=== PATIENT | female | born 1930 | race Caucasian/White ===

== ENCOUNTER → 2017-04-06 | Outpatient (CLI) | payer MEDICARE, OTHER ==
--- NOTE | 2017-04-09 08:02 | BD ---
EXAMINATION TYPE: MG DEXA axial skeleton. DATE OF EXAM: 04/06/2017 COMPARISON: 03.29.2015 CLINICAL HISTORY: 86-year-old female ICD10 CODE: Z78.0 POST MENOPAUSAL W/O HRT Height: 64.5 Weight: 159 FRAX RISK QUESTIONS: Alcohol (3 or more units per day): RED WINE DAILY, NOT 3 UNITS Family History (Parent hip fracture): NO Glucocorticoids (More than 3mos): NO (Ex: prednisone, prednisolone, methylprednisolone, dexamethasone, and hydrocortisone). History of Fracture in Adulthood: NO Secondary Osteoporosis: NO 1. Type 1 Diabetes: NO 2. Hyperthyroidism: NO 3. Menopause before 45: NO 4. Malnutrition: NO 5. Chronic liver disease: NO Rheumatoid Arthritis: NO Current Tobacco Use: NO...QUIT 30 YRS AGO RISK FACTORS HISTORY OF: Family History of Osteoporosis: YES, HER MOTHER..NO HIP FX Active: YES PRETTY ACTIVE Diet low in dairy products/other sources of calcium: NO Postmenopausal woman: YES AT AGE 56 YRS OLD Lost more than 2 inches in height since high school: YES Hyperparathyroidism: NO Adrenal Insufficiency: NO MEDICATIONS: Osteoporosis Medications: LAST TAKEN 2 YRS AGO Which medication: PROLIA How Lon YRS Additional Medications: NASAL SPRAY FOR SINUS TROUBLE, CALTRATE, REFLUX MEDS, CHOLESTEROL MEDS....STO PPED 1 YR AGO Additional History: OSTEOPENIA, REFLUX, SINUS CONGESTION EXAM MEASUREMENTS: Bone mineral densitometry was performed using the LVL6 System. Bone mineral density as measured about the Lumbar spine is: ----- L1-L4(G/cm2): 1.059 T Score Values are as follows: ----- L1: -2.0 ----- L2: -2.5 ----- L3: -0.6 ----- L4: 0.7 ----- L1-L4: -1.0 Bone mineral density has: Increased 0.6% since study of: 03.29.2015 Bone mineral density about the R hip (g/cm2): 0.806 Bone mineral density about the L hip (g/cm2): 0.901 T Score values are as follows: -----R Neck: -1.4 -----L Neck: -0.7 -----R Total: -1.6 -----L Total: -0.9 Bone mineral density has: Decreased -0.5% since study of: 03.29.2015 FRAX%'S: THERE IS A 13.0% CHANCE OF A MAJOR OSTEOPOROTIC FX AND A 3.4% OF A HIP FX.....PROBABILITY OF FX IN 10 YRS TIME IMPRESSION: Osteopenia (T Score between -2.5 and -1 as noted by T score values There is slightly increased risk of fracture and the patient may be considered for treatment. Re-Screen 2-5 years. NOTE: T-SCORE=SD OF THE YOUNG ADULT MEAN.
--- NOTE | 2017-04-09 11:14 | MM ---
Reason for exam: screening (asymptomatic). Last mammogram was performed 4 years and 2 months ago. History: Patient is postmenopausal. Family history of breast cancer in paternal cousin. Taking estrogen for 14 years beginning at age 64. Physical Findings: A clinical breast exam by your physician is recommended on an annual basis and results should be correlated with mammographic findings. MG Screening Mammo w CAD Bilateral CC and MLO view(s) were taken. Prior study comparison: February 04, 2013, bilateral digital screening mammo w/CAD. January 19, 2011, bilateral digital screening mammo w/CAD. The breast tissue is extremely dense which could obscure a lesion on mammography. Stable benign calcifications. There is no discrete abnormality. No significant changes when compared with prior studies. ASSESSMENT: Benign, BI-RAD 2 RECOMMENDATION: Routine screening mammogram of both breasts in 1 year.
== END | disposition home or self-care (01) ==
LOC: RADMAMWWP 10:09
PROVIDERS: ATTEND Family Medicine
DX: Z12.31 Encounter for screening mammogram for malignant neoplasm of breast (principal); M85.80 Other specified disorders of bone density and structure, unspecified site; Z78.0 Asymptomatic menopausal state
CPT/HCPCS: 77080; G0202

== ENCOUNTER → 2017-05-24 | Outpatient (CLI) | payer MEDICARE, OTHER ==
[~2017-05-24] MED LIST: DENOSUMAB 60 MG/ML 1 ML SYRINGE SQ ONE
[2017-05-24 14:07] VITALS: BP 125/62; PULSE 67; RESP 16; TEMP 98
== END | disposition home or self-care (01) ==
LOC: PROCWHC3 13:35
PROVIDERS: ATTEND Family Medicine
DX: M81.0 Age-related osteoporosis without current pathological fracture (principal)
CPT/HCPCS: 96372

== ENCOUNTER → 2018-03-05 | Outpatient (CLI) | payer MEDICARE, OTHER ==
[2018-03-05 14:52] VITALS: BP 101/61; PULSE 60; RESP 14; TEMP 98.2
== END | disposition home or self-care (01) ==
LOC: PROCWHC3 14:28
PROVIDERS: ATTEND Family Medicine
DX: M81.0 Age-related osteoporosis without current pathological fracture (principal)
CPT/HCPCS: 96372; J0897

== ENCOUNTER → 2018-09-04 | Outpatient (CLI) | payer MEDICARE, OTHER ==
[2018-09-04 10:38] VITALS: BP 135/77; PULSE 58; RESP 16; TEMP 96.7
== END ==
LOC: PROCWHC3 10:17
PROVIDERS: ATTEND Midwife
DX: M81.0 Age-related osteoporosis without current pathological fracture (principal)
CPT/HCPCS: 96372; J0897

== ENCOUNTER → 2018-09-18 | Outpatient (CLI) | payer MEDICARE, OTHER ==
--- NOTE | 2018-09-18 18:04 | CT ---
EXAMINATION TYPE: CT brain marielle wo con DATE OF EXAM: 09/18/2018 COMPARISON: None HISTORY: Neck pain and headache CT DLP: 1449 mGycm, Automated exposure control for dose reduction was used. CONTRAST: None CT of the brain is performed utilizing 3 mm thick sections through the posterior fossa and 3 mm thick sections through the remaining calvarium. Study is performed within 24 hours of arrival to the hospital. No abnormal hyperdensity is present to suggest an acute intracranial hemorrhage. No mass lesion is evident. No acute infarcts are evident. There are some scattered periventricular white matter hypodense areas , likely on the basis of chronic white matter ischemic change. Ventricles and sulci are prominent for the patient age. Paranasal sinuses and mastoid air cells within the [id number] are clear. IMPRESSIONS: 1. Atrophy with periventricular white matter ischemic changes. CT cervical spine. COMPARISON: None CT of the cervical spine is performed in the axial plane at 2 mm thick sections. Reconstructed image s in the coronal, and sagittal plane are reviewed on the computer. No acute fractures are evident. Vertebral body alignment is normal. There is diffuse narrowing of the disc heights. A very minimal grade 1 spondylolisthesis of C4 anteri janina on C5 is present. Facet degenerative changes are present C4-5 on the left. Vertebral body heights are preserved. No spinal canal stenosis is evident. No neural foraminal stenosis is evident. IMPRESSIONS: 1. Facet degenerative changes greatest at C5 for 5 on the left. 2. Grade 1 spondylolisthesis of C4 anteriorly on C5. 3. Diffuse degenerative disc changes. 4. No acute fractures evident
== END | disposition home or self-care (01) ==
LOC: RADCTMAIN 07:51
PROVIDERS: ATTEND Family Medicine
DX: M50.30 Other cervical disc degeneration, unspecified cervical region (principal); M47.812 Spondylosis without myelopathy or radiculopathy, cervical region; M43.12 Spondylolisthesis, cervical region
CPT/HCPCS: 70450; 72125

== ENCOUNTER → 2019-04-02 | Outpatient (CLI) | payer MEDICARE, OTHER ==
[2019-04-02 10:55] VITALS: BP 132/75; PULSE 54; RESP 16; TEMP 97.2
== END | disposition home or self-care (01) ==
LOC: PROCWHC3 10:28
PROVIDERS: ATTEND Family Medicine
DX: M81.0 Age-related osteoporosis without current pathological fracture (principal)
CPT/HCPCS: 96372; J0897

== ENCOUNTER → 2019-04-14 | Outpatient (CLI) | payer MEDICARE, OTHER ==
--- NOTE | 2019-04-15 04:16 | BD ---
EXAMINATION TYPE: Axial Bone Density DATE OF EXAM: 04/14/2019 COMPARISON: 04/06/2017 CLINICAL HISTORY: 88-year-old female postmenopausal screening Height: 65.2 IN Weight: 156 LBS RISK FACTORS HISTORY OF: Active: YES Diet low in dairy products/other sources of calcium: YES Postmenopausal woman: AGE 56 Take estrogen and/or progesterone medications: NOT NOW TOOK FOR 14 YEARS MEDICATIONS: Osteoporosis Medications: YES Which medication: Prolia How Lon-4 YEARS Additional Medications: PROLIA, VIT D, CALTRATE,ASPIRIN, METROPROLOL, EXAM MEASUREMENTS: Bone mineral densitometry was performed using the [employer] System. Bone mineral density as measured about the Lumbar spine is: ----- L1-L4(G/cm2): 1.096 T Score Values are as follows: ----- L2: -2.1 ----- L3: -0.5 ----- L4: 1.5 ----- L1-L4: -0.7 Bone mineral density has: Increased 4.9% since study of: 04/06/2017 Bone mineral density about the R hip (g/cm2): 0.795 Bone mineral density about the L hip (g/cm2): 0.896 T Score values are as follows: -----R Neck: -1.8 -----L Neck: -1.0 -----R Total: -1.3 -----L Total: -0.8 Bone mineral density has: Increased 2.5% since study of: 04/06/2017 IMPRESSION: Osteopenia (T Score between -2.5 and -1). There is slightly increased risk of fracture and the patient may be considered for treatment. Re-Screen 2-5 years. NOTE: T-SCORE=SD OF THE YOUNG ADULT MEAN.
--- NOTE | 2019-04-15 09:45 | MM ---
Reason for exam: screening (asymptomatic). Last mammogram was performed 2 years ago. History: Patient is postmenopausal. Family history of breast cancer in paternal cousin. Taking estrogen for 14 years beginning at age 64. Physical Findings: A clinical breast exam by your physician is recommended on an annual basis and results should be correlated with mammographic findings. MG 3D Screening Mammo W/Cad Bilateral CC and MLO view(s) were taken. Prior study comparison: April 06, 2017, bilateral MG screening mammo w CAD. February 04, 2013, bilateral digital screening mammo w/CAD. The breast tissue is extremely dense which could obscure a lesion on mammography. Benign appearing bilateral calcifications. No suspicious abnormality. No significant changes when compared with prior studies. ASSESSMENT: Benign, BI-RAD 2 RECOMMENDATION: Routine screening mammogram of both breasts in 1 year.
== END | disposition home or self-care (01) ==
LOC: RADMAMWWP 09:39
PROVIDERS: ATTEND Family Medicine
DX: Z12.31 Encounter for screening mammogram for malignant neoplasm of breast (principal); M85.80 Other specified disorders of bone density and structure, unspecified site; Z78.0 Asymptomatic menopausal state
CPT/HCPCS: 77063; 77067; 77080

== ENCOUNTER 2019-12-15 06:35 | Day surgery (SDC) | payer MEDICARE, OTHER ==
[2019-12-12 09:40] VITALS: BMI 23.9
[~2019-12-15 06:35] MED LIST changes: +ACETAMINOPHEN TAB 500 MG TAB PO ONE; -DENOSUMAB 60 MG/ML 1 ML SYRINGE SQ ONE; +DEXAMETHASONE SOD PHOSPHATE 10 MG/ML 1 ML VIAL IV ONE; +HEPARIN SODIUM,PORCINE 5,000 UNIT/ML 1 ML VIAL SQ ONE; +HYDROmorphone 0.5 MG/0.5 ML SYRINGE IVP PRN; +LACTATED RINGERS 1,000 ML IV SCH; +LIDOCAINE 1% (10MG/ML) FOR IV START INTRADERMA PRN; +ONDANSETRON 4 MG/2 ML VIAL IVP ONE; +Pre Op ABX Message 1 EACH MISC MISCELLANE ONE
[2019-12-15] MEDS ORDERED: ACETAMINOPHEN TAB 500 MG TAB ONE (06:50)
[2019-12-15] MEDS ORDERED: ONDANSETRON 4 MG/2 ML VIAL ONE (06:51)
[2019-12-15] MEDS ORDERED: HEPARIN SODIUM,PORCINE 5,000 UNIT/ML 1 ML VIAL ONE (06:56)
[2019-12-15 07:09] VITALS: TEMP 97.2
[2019-12-15] MEDS ORDERED: MIDAZOLAM 2 MG/2 ML VIAL ONE (07:34)
[2019-12-15] MEDS ORDERED: PROPOFOL 10 MG/ML 20 ML VIAL IV ONE (07:34)
[2019-12-15] MEDS ORDERED: fentaNYL (PF) 50 MCG/ML 2 ML AMP ONE (07:34)
--- NOTE | 2019-12-15 07:42 | P.GSHP ---
History of Present Illness H&P Date: 12/15/19 Chief Complaint: Squamous cell carcinoma left lower leg This 89-year-old female who underwent previous biopsy of a skin lesion left lower leg. Patient's found have scope was carcinoma. She presents today for wide local excision. Past Medical History Past Medical History: Musculoskeletal Disorder Additional Past Medical History / Comment(s): Rapid heartbeat. Osteoporosis. Back pain. History of Any Multi-Drug Resistant Organisms: None Reported Past Surgical History: Appendectomy, Hysterectomy Additional Past Surgical History / Comment(s): Bilateral Bunionectomy, Varicose Vein Stripping, Bilateral Cataract Surgery. Past Anesthesia/Blood Transfusion Reactions: No Reported Reaction Past Psychological History: No Psychological Hx Reported Smoking Status: Former smoker Past Alcohol Use History: Occasional Additional Past Alcohol Use History / Comment(s): Smoked in teens and 20's. Past Drug Use History: None Reported - Past Family History Father Family Medical History: Cancer Additional Family Medical History / Comment(s): Liver Cancer. Medications and Allergies Home Medications Medication Instructions Recorded Confirmed Type Aspirin 81 mg PO Q48H 02/19/14 12/12/19 History Calcium Carbonate/Vitamin D3 1 each PO DAILY 02/19/14 12/12/19 History [Caltrate 600 + D Tablet] Cholecalciferol (Vitamin D3) 10,000 unit PO DAILY 02/19/14 12/12/19 History [Vitamin D] Denosumab [Prolia] 60 mg SQ DIRECTED 05/12/14 12/12/19 History Metoprolol 25 mg PO QAM 12/12/19 12/12/19 History [place]-3 Fatty Acids/Fish Oil [Fish 1 each PO DAILY 12/12/19 12/12/19 History Oil 1,000 mg Softgel] Allergies Allergy/AdvReac Type Severity Reaction Status Date / Time Penicillins Allergy Swelling Verified 12/15/19 07:09 Surgical - Exam Vital Signs Temp Pulse Resp BP Pulse Ox 97.2 F L 60 14 141/68 98 12/15/19 07:07 12/15/19 07:07 12/15/19 07:07 12/15/19 07:07 12/15/19 07:07 - General well developed, well nourished, no distress - Eyes PERRL - ENT normal pinna - Neck no masses - Respiratory normal expansion - Cardiovascular Rhythm: regular - Abdomen Abdomen: soft, non tender - Integumentary 1 cm serosal carcinoma which has been biopsy of left lower leg pretibial area Assessment and Plan Plan: Squamous cell carcinoma left lower leg. Patient will undergo wide local excision today.
[2019-12-15] MEDS ORDERED: SODIUM CHLORIDE 0.9% 50 ML with CLINDAMYCIN 600 MG IV ONE ×4 (07:48)
[2019-12-15] MEDS ORDERED: BUPIVACAIN-EPI 0.25%-1:200,000 30 ML VIAL SQ ONE ×2 (07:48)
--- NOTE | 2019-12-15 08:05 | P.OP ---
Date of Procedure: 12/15/19 Preoperative Diagnosis: Left lower extremity squamous cell carcinoma Postoperative Diagnosis: Left lower extremity squamous cell carcinoma Procedure(s) Performed: Wide local excision of squamous cell carcinoma left lower extremity Anesthesia: MAC Surgeon: Mitch Sauer Estimated Blood Loss (ml): 3 Pathology: other (Skin lesion) Condition: stable Disposition: PACU Description of Procedure: The patient was placed on the operative table in the supine position. She received IV sedation. Her left lower extremity was prepped and draped usual sterile fashion. The patient a previous a biopsied skin lesion. Elliptical skin incision was made around the lesion. The excised lesion measured approximately 3 x 2 cm. The sutures placed in the superior portion of the lesion to fausto it. The skin was then closed interrupted 3-0 Vicryl and 3-0 nylon suture. Sterile dressing applied. Patient top she will was sent to recovery in stable condition.
[2019-12-15 08:07] VITALS: PULSE 62; RESP 16
[2019-12-15 08:28] VITALS: BP 106/63
== END 2019-12-15 08:51 | disposition home or self-care (01) ==
LOC: OR 06:35
PROVIDERS: ATTEND Surgery
DX: C44.729 Squamous cell carcinoma of skin of left lower limb, including hip (principal); M81.0 Age-related osteoporosis without current pathological fracture; Z88.0 Allergy status to penicillin; Z79.82 Long term (current) use of aspirin; Z79.899 Other long term (current) drug therapy; Z90.49 Acquired absence of other specified parts of digestive tract; Z98.41 Cataract extraction status, right eye; Z98.42 Cataract extraction status, left eye; Z90.710 Acquired absence of both cervix and uterus; Z98.890 Other specified postprocedural states; Z87.891 Personal history of nicotine dependence; Z80.0 Family history of malignant neoplasm of digestive organs
CPT/HCPCS: 88305; 11603; J2250; J1644; J1100; J2405; J3010; J2704

== ENCOUNTER → 2020-02-17 | Outpatient (CLI) | payer MEDICARE, OTHER ==
[~2020-02-17] MED LIST changes: -ACETAMINOPHEN TAB 500 MG TAB PO ONE; +DENOSUMAB 60 MG/ML 1 ML SYRINGE SQ NR; -DEXAMETHASONE SOD PHOSPHATE 10 MG/ML 1 ML VIAL IV ONE; -HEPARIN SODIUM,PORCINE 5,000 UNIT/ML 1 ML VIAL SQ ONE; -HYDROmorphone 0.5 MG/0.5 ML SYRINGE IVP PRN; -LACTATED RINGERS 1,000 ML IV SCH; -LIDOCAINE 1% (10MG/ML) FOR IV START INTRADERMA PRN; -ONDANSETRON 4 MG/2 ML VIAL IVP ONE; -Pre Op ABX Message 1 EACH MISC MISCELLANE ONE
[2020-02-17 14:08] VITALS: BP 108/68; PULSE 73; RESP 16; TEMP 97.5
== END | disposition home or self-care (01) ==
LOC: PROCWHC3 13:54
PROVIDERS: ATTEND Nurse Practitioner Family
DX: M81.0 Age-related osteoporosis without current pathological fracture (principal)
CPT/HCPCS: 96372; J0897

== ENCOUNTER → 2020-11-02 | Outpatient (CLI) | payer MEDICARE, OTHER ==
[2020-11-02 10:47] VITALS: BP 96/60; PULSE 96; RESP 18; TEMP 97.7
== END ==
LOC: PROCWHC3 10:34
PROVIDERS: ATTEND Family Medicine
DX: M81.0 Age-related osteoporosis without current pathological fracture (principal); Z88.0 Allergy status to penicillin
CPT/HCPCS: 96372; J0897

== ENCOUNTER → 2021-05-09 | Outpatient (CLI) | payer MEDICARE, OTHER ==
[2021-05-09 10:43] VITALS: BP 122/67; PULSE 64; RESP 16; TEMP 97.9
== END ==
LOC: PROCWHC3 10:15
PROVIDERS: ATTEND Family Medicine
DX: M81.0 Age-related osteoporosis without current pathological fracture (principal); Z88.0 Allergy status to penicillin
CPT/HCPCS: 96372; J0897

== ENCOUNTER 2021-06-01 10:47 | Emergency (ER) | payer MEDICARE, OTHER ==
[2021-06-01 10:55] VITALS: RESP 20
--- NOTE | 2021-06-01 11:23 | ED ---
Fall HPI - General Chief Complaint: Fall Stated Complaint: Fall Time Seen by Provider: 06/01/21 10:56 Source: patient, EMS Mode of arrival: EMS Limitations: no limitations - History of Present Illness Initial Comments: This is a pleasant 89-year-old female who presents to the ER via EMS after having a mechanical fall. Patient states she was walking, turned, and tripped over a curb. Patient fell face forward and struck her nose and forehead area on cement. Patient recalls the entire event. There is no loss of consciousness. She denies any vision or hearing changes. No neck pain. No significant headache. No chest pain or shortness of breath. No abdominal pain. Patient has no preceding symptomology. No symptoms of syncope. Nuys any nausea or vomiting. She denies any focal weakness. Patient complaining of pain to the nasal area. Pain is exacerbated by palpation. She did have a nosebleed which has stopped. Seemed to be mostly from the right side. Patient also complaining of some pain about the right elbow has full range of motion. Sustained an abrasion to the right knee and right lower leg area with no significant pain. Last tetanus is unknown. Patient is not anticoagulated. 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 Witnessed: yes, by bystander Place Fall Occurred: street Loss of Consciousness: none Prolonged Down Time?: no Symptoms Prior to Fall: none Location: head, face Location - Extremities: Right: Elbow, Forearm, Knee, Leg Severity: mild Severity scale (1-10): 3 Quality: dull Context: tripped/slipped Associated Symptoms: denies - Related Data Home Medications Medication Instructions Recorded Confirmed Aspirin 81 mg PO DAILY 02/19/14 06/01/21 Calcium Carbonate/Vitamin D3 1 tab PO DAILY 02/19/14 06/01/21 [Caltrate 600 + D Tablet] Denosumab [Prolia] 60 mg SQ Q365D 05/12/14 06/01/21 Atorvastatin [Lipitor] 10 mg PO HS 11/02/20 06/01/21 Cholecalciferol [Vitamin D3 (125 125 mcg PO DAILY 06/01/21 06/01/21 Mcg = 5000 Iu)] Ipratropium [place] 0.06%Nasal 2 spr EA NOSTRIL TID 06/01/21 06/01/21 [Atrovent Nasal 0.06%] Metoprolol Tartrate [Lopressor] 12.5 mg PO DAILY 06/01/21 06/01/21 Allergies Allergy/AdvReac Type Severity Reaction Status Date / Time Penicillins Allergy Swelling Verified 06/01/21 11:55 Review of Systems ROS Statement: Those systems with pertinent positive or pertinent negative responses have been documented in the HPI. ROS Other: All systems not noted in ROS Statement are negative. Constitutional: Reports: as per HPI Eyes: Reports: as per HPI ENT: Reports: as per HPI Respiratory: Denies: cough, dyspnea, wheezes Cardiovascular: Denies: chest pain, palpitations, dyspnea on exertion, orthopnea Endocrine: Denies: fatigue, heat or cold intolerance Gastrointestinal: Denies: abdominal pain, nausea, vomiting Genitourinary: Denies: urgency, dysuria Musculoskeletal: Denies: back pain, joint swelling Skin: Denies: rash, change in color Neurological: Reports: as per HPI. Denies: headache, weakness, confusion, abnormal gait, vertigo Psychiatric: Denies: anxiety, depression Hematological/Lymphatic: Reports: as per HPI. Denies: easy bleeding, easy bruising Past Medical History Past Medical History: Musculoskeletal Disorder Additional Past Medical History / Comment(s): Rapid heartbeat. Osteoporosis. Back pain. History of Any Multi-Drug Resistant Organisms: None Reported Past Surgical History: Appendectomy, Hysterectomy Additional Past Surgical History / Comment(s): Bilateral Bunionectomy, Varicose Vein Stripping, Bilateral Cataract Surgery. Past Anesthesia/Blood Transfusion Reactions: No Reported Reaction Past Psychological History: No Psychological Hx Reported Smoking Status: Former smoker Past Alcohol Use History: Occasional Past Drug Use History: None Reported - Past Family History Father Family Medical History: Cancer Additional Family Medical History / Comment(s): Liver Cancer. General Exam - General Exam Comments Initial Comments: Cranial nerves II through XII grossly intact. Patient appears to have no focal neurologic deficit. Appears to have minor trauma to the nasal area as well as an abrasion to the right knee and right lower leg. No other significant abnormalities noted. Intraocular medical history. Alert and oriented 4. Limitations: no limitations General appearance: alert, in no apparent distress Head exam: Present: atraumatic, normocephalic, normal inspection Eye exam: Present: normal appearance, PERRL, EOMI. Absent: scleral icterus, conjunctival injection, periorbital swelling ENT exam: Present: normal exam, mucous membranes moist, other (Patient has abrasion to the bridge of her nose with tenderness associated to the area. Evidence of recent bleeding to the right naris. No evidence of septal hematoma. Airways patent. Facial examination is normal otherwise. No other significant abnormalities.) Expanded Ear exam: Present: normal external inspection. Absent: auricular hematoma, auricular trauma Mouth exam: Present: normal external inspection, tongue normal. Absent: drooling, trismus, muffled voice Teeth exam: Present: normal inspection. Absent: dental caries, fractured tooth #, dental tenderness # Throat exam: normal inspection Neck exam: Present: normal inspection, other (Patient in a cervical collar). Absent: tenderness, meningismus, lymphadenopathy Respiratory exam: Present: normal lung sounds bilaterally. Absent: respiratory distress, wheezes, rales, rhonchi, stridor Cardiovascular Exam: Present: regular rate, normal rhythm, normal heart sounds. Absent: systolic murmur, diastolic murmur, rubs, gallop, clicks GI/Abdominal exam: Present: soft, normal bowel sounds. Absent: distended, tenderness, guarding, rebound, rigid Extremities exam: Present: normal inspection, full ROM, normal capillary refill. Absent: tenderness, pedal edema, joint swelling, calf tenderness Back exam: Present: normal inspection Neurological exam: Present: alert, oriented X3, CN II-XII intact, normal gait, other ([place] Coma Scale is 15.). Absent: altered, abnormal gait, motor sensory deficit, reflexes normal Expanded Patient oriented to: Present: person, place, time Speech: Present: fluid speech Cerebellar function: Finger to Nose: Normal, Heel to [place]: Normal Motor strength exam: RUE: 5, LUE: 5, RLE: 5, LLE: 5 Psychiatric exam: Present: normal affect, normal mood Skin exam: Present: warm, dry, intact, normal color. Absent: rash Course Vital Signs 06/01/21 10:48 Temperature 98.2 F Pulse Rate 62 Respiratory 20 Rate Blood Pressure 143/79 O2 Sat by Pulse 97 Oximetry Medical Decision Making - Medical Decision Making Emergency Medicine: Utilization of CT for Minor Blunt Head Trauma (Adult) [X] Patient is 18 or older, presenting with minor blunt head trauma. Head CT (including cosigned orders) was ordered by an emergency landcare officer for trauma because (select one or more): [SATISFIES MIPS PERFORMANCE] Reasons: [X] Patient is 65 or older Disposition Clinical Impression: Fall, Nasal bone fracture, Closed head injury, Sprain of elbow, right Disposition: DC/TRNS W/I HOSP TO SNF SWING Condition: Good Instructions (If sedation given, give patient instructions): Fall Prevention for Older Adults (ED), Head Injury (ED), Elbow Sprain (ED), Nasal Fracture (ED) Additional Instructions: Follow-up with your regular physician as directed. Return to the ER immediately if any symptoms worsen, new symptoms arise, or any other problems develop. Follow-up with orthopedics as directed. Wear the sling as tolerated. Take [id number] Tylenol 500 mg every 4-6 hours as needed for pain control. Ensure that some disease with you at all times for the next 24 hours. Apply ice to the affected areas for 10-15 minutes at a time 45 times daily. Call for a follow-up appointment with the orthopedic physician as well as the ENT physician. Review the head injury instructions. Is patient prescribed a controlled substance at d/c from ED?: No Referrals: Edis Alvarado MD [Primary Care Provider] - 1-2 days Catalino Brantley PAC [PHYSICIAN CYLINDER DIE MACHINE HELPER] - 06/06/21 Jordi Carroll MD [STAFF PHYSICIAN] - 06/03/21 Time of Disposition: 14:02
[2021-06-01] MEDS ORDERED: DIPH,PERTUS(ACELL)TETVAC-LF 0.5 ML VIAL IM ONE (11:25)
--- NOTE | 2021-06-01 13:03 | CT ---
EXAMINATION TYPE: CT facial bones wo con DATE OF EXAM: 06/01/2021 COMPARISON: None HISTORY: Fall CT DLP: Included with Brain/C-spine of 972.5 mGycm Automated exposure control for dose reduction was used. Contrast: None Technique: Axial images 2 mm thick sections. Reconstructed images in coronal planes. FINDINGS: Air-fluid levels are within the bilateral maxillary sinuses. Air and debris appears to the right nasa l passage. Sphenoid sinuses are clear. Mild air cells and mild mucosal thickening. Some air-fluid may be within the inferior right frontal sinus. Frontal sinuses are otherwise clear. Zygomatic arches greater wings of the sphenoid are intact. Mandible maxilla appear intact. Maxillary spine is intact. Orbital floors appear intact. Medial urena of the orbits appear intact. There is some deviation of the right nasal bones. Underlying fracture may be present. This is the sharonda e of sinus abnormality. IMPRESSION: 1. SUSPECTED RIGHT-SIDED NASAL BONE FRACTURES. 2. BILATERAL AIR-FLUID LEVELS WITHIN THE MAXILLARY SINUSES WITH MUCOSAL THICKENING WITHIN MAXILLARY A ND ETHMOID AIR CELLS.
--- NOTE | 2021-06-01 13:14 | CT ---
EXAMINATION TYPE: CT brain marielle wo con DATE OF EXAM: 06/01/2021 COMPARISON: 09/18/2018 HISTORY: Fall CT DLP: 972.5 mGycm, Automated exposure control for dose reduction was used. CONTRAST: Patient injected with 0 mL of Isovue 300. CT of the brain is performed utilizing 3 mm thick sections through the posterior fossa and 3 mm thick sections through the remaining calvarium. Study is performed within 24 hours of arrival to the hospital. No abnormal hyperdensity is present to suggest an acute intracranial hemorrhage. No mass lesion is evident. No acute infarcts are evident. There is some subtle periventricular white matter hypodensity, likely on the basis of chronic white matter ischemic changes. Ventricles and sulci are minimally prominent for the patient age. Air-fluid levels are noted within the maxillary sinuses. There is debris and fluid within the right n jagdeep passage. Mastoid air cells appear clear. Subtle nasal bone fracture on the right may be present. IMPRESSIONS: 1. Mild chronic atrophy and ischemic type changes. No acute intracranial process radiographically yulisa arent. 2. Air-fluid levels in maxillary sinuses. 3. Suspected right nasal bone fracture CT cervical spine. COMPARISON: None CT of the cervical spine is performed in the axial plane at 2 mm thick sections. Reconstructed image s in the coronal, and sagittal plane are reviewed on the computer. No acute fractures are evident. Vertebral body alignment is normal. Disc space narrowing is present C5-C6. There is some mild left foraminal stenosis at C5-6 and C6-7. L eft apical thickening is present. Some mild right apical thickening is also noted. Vertebral body heights are preserved. No spinal canal stenosis is evident. IMPRESSIONS: 1. Degenerative disc changes and left foraminal stenosis C5-6.
--- NOTE | 2021-06-01 13:17 | XR ---
Right humerus and right forearm HISTORY: Trauma and pain 2 views the right humerus, 2 views of the right forearm submitted Bone mineralization is reduced. Alignment is maintained. Arthropathy is present at the acromioclavicu lar joint. There is arthropathy noted in the right wrist. Lucency seen at the level of the humeral ep icondyle medially on the forearm view may be technical. Difficult to exclude a joint effusion at the elbow. IMPRESSION: If symptoms are referrable to the elbow then dedicated abdominal imaging may be of benefi t. No acute dislocation is evident. Difficult to exclude elbow joint effusion.
[2021-06-01] MEDS ORDERED: ACETAMINOPHEN TAB 500 MG TAB PO STA (14:08)
[2021-06-01 14:40] VITALS: BP 140/82; PULSE 70; TEMP 98
== END 2021-06-01 14:40 | disposition swing bed (61) ==
LOC: EC 10:47
DX: S53.401A Unspecified sprain of right elbow, initial encounter (principal); S02.2XXA Fracture of nasal bones, initial encounter for closed fracture; S09.90XA Unspecified injury of head, initial encounter; Z79.82 Long term (current) use of aspirin; Z23 Encounter for immunization; Z88.0 Allergy status to penicillin; Z90.49 Acquired absence of other specified parts of digestive tract; Z90.710 Acquired absence of both cervix and uterus; Z87.891 Personal history of nicotine dependence; W01.10XA Fall on same level from slipping, tripping and stumbling with subsequent striking against unspecified object, initial encounter
CPT/HCPCS: 70450; 70486; 72125; 90471; 90715; 99285